=== PATIENT | female | born 1995 ===

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

== ENCOUNTER 2018-08-05 04:22 | Emergency (ER) | payer MEDICAID ==
[2018-08-05 04:41] VITALS: BMI 36.4
[2018-08-05 04:43] VITALS: O2SAT 100
--- NOTE | 2018-08-05 04:55 | ED PDOC ---
HPI: Dental Pain/Injury Time Seen by Provider: 08/05/18 04:46 Chief Complaint (Nursing): Dental Pain Chief Complaint (Provider): Dental Pain History Per: Patient History/Exam Limitations: no limitations Onset/Duration Of Symptoms: Hrs (x4) Additional Complaint(s): 23 years old female presents to ER for evaluation of toothache onset 4 hours ago. Patient reports pain was mild yesterday, went to sleep and was awoken to severe pain to left lower jaw. She has dental caries but reports due to loss of insurance coverage she was not able to go to a dentist. Patient reports taking Ibuprofen with no relief. PMD: None provided Past Medical History Reviewed: Historical Data, Nursing Documentation, Vital Signs Vital Signs: Last Vital Signs Temp 98.0 F 08/05/18 04:40 Pulse 77 08/05/18 04:40 Resp 18 08/05/18 04:40 BP 153/77 H 08/05/18 04:40 Pulse Ox 100 08/05/18 04:40 - Medical History PMH: No Chronic Diseases - Surgical History Surgical History: No Surg Hx - Family History Family History: States: Unknown Family Hx - Social History Current smoker - smoking cessation education provided: No Alcohol: None Drugs: Denies - Immunization History Hx Tetanus Toxoid Vaccination: Yes Hx Influenza Vaccination: No Hx Pneumococcal Vaccination: No - Home Medications Home Medications: Ambulatory Orders Medication Instructions Recorded Doxycycline Hyclate [Doxycycline] 1 tab PO BID #27 tab 01/01/15 Metronidazole [Flagyl] 500 mg PO BID #27 tab 01/01/15 oxyCODONE/Acetaminophen [Percocet 1 tab PO QID PRN #15 tab 01/01/15 5/325 mg Tab] Docusate Sodium/Ferrous Fumara 1 tab PO DAILY #30 tab 09/19/16 [Deborah-Sequels 100 mg -150 mg] Ibuprofen [Motrin] 600 mg PO Q6 #30 tab 09/19/16 Ibuprofen [Motrin Tab] 600 mg PO Q6 #30 tab 11/09/16 Ondansetron [Zofran] 4 mg PO Q8H #12 tab 11/09/16 traMADol [Ultram] 50 mg PO TID 3 Days tab 11/09/16 Naproxen [Naprosyn] 500 mg PO Q12 #14 tab 08/05/18 - Allergies Allergies/Adverse Reactions: Allergies Allergy/AdvReac Type Severity Reaction Status Date / Time No Known Allergies Allergy Verified 08/05/18 04:40 Review of Systems ROS Statement: Except As Marked, All Systems Reviewed And Found Negative ENT: Positive for: Mouth Pain (Left lower jaw pain) Physical Exam - Reviewed Nursing Documentation Reviewed: Yes Vital Signs Reviewed: Yes - Physical Exam Appears: Positive for: Uncomfortable Head Exam: Positive for: ATRAUMATIC, NORMOCEPHALIC ENT: Positive for: Other (Tenderness to left mandible. Dental caries. No fluctuance, redness or warmth.) Neurologic/Psych: Positive for: Alert, Oriented (x3) - ECG O2 Sat by Pulse Oximetry: 100 (RA) Pulse Ox Interpretation: Normal Medical Decision Making Medical Decision Making: Time: 448 Initial Impression: 23 years old female with toothache Initial Plan: --Urine --Toradol 60 mg IM --Ultram 50 mg PO 622 Patient is medically stable for discharge and will followup with a dentist. Diagnosis: toothache Scribe Attestation: Documented by Tatyana Pierre, acting as a scribe for Cameron Moreira MD. Provider Scribe Attestation: All medical record entries made by the Scribe were at my direction and personally dictated by me. I have reviewed the chart and agree that the record accurately reflects my personal performance of the history, physical exam, medical decision making, and the department course for this patient. I have also personally directed, reviewed, and agree with the discharge instructions and disposition. Disposition - Clinical Impression Clinical Impression: Toothache - Patient ED Disposition Is Patient to be Admitted: No - Disposition Disposition: Routine/Home Disposition Time: 06:23 Condition: STABLE Prescriptions: Naproxen [Naprosyn] 500 mg PO Q12 #14 tab Instructions: Dental Pain Forms: [employer] ([employer])
[2018-08-05] MEDS ORDERED: Acetaminophen-Codeine 300/30 mg Tab PO STA (06:17)
[2018-08-05] MEDS ORDERED: Acetaminophen-Codeine 300/30 mg Tab ONE (06:28)
[2018-08-05 06:53] VITALS: BP 138/79; PULSE 76; RESP 17; TEMP 98.8
== END 2018-08-05 06:59 | disposition home or self-care (01) ==
LOC: H.ER 04:22
DX: K08.89 Other specified disorders of teeth and supporting structures (principal)
CPT/HCPCS: 81025; 96372; 99283; J1885